=== PATIENT | male | born 1980 | race American Indian/Alaskan Native ===

== ENCOUNTER 2017-01-02 16:27 | Emergency (ER) | payer BC ==
[2017-01-02 16:34] VITALS: TEMP 97.8; BMI 45.5
--- NOTE | 2017-01-02 17:09 | ED PDOC ---
Arrival/HPI - General Chief Complaint: Lower Extremity Problem/Injury Time Seen by Provider: 01/02/17 16:52 Historian: Patient - History of Present Illness Narrative History of Present Illness (Text): 01/02/17 17:03 A 36 year old male presents to the emergency department complaining of bilateral lower extremity edema for the past several weeks to possibly months. Patient denies any relieving or exacerbating factors. He denies any difficulty ambulating. Patient denies any trauma, injury, fever, chills, nausea, vomiting, abdominal pain, chest pain, shortness of breath or any other complaints. PMD: Dr. Austin Bruce Time/Duration: Other (Several weeks to months) Symptom Course: Unchanged Quality: Other Context: Other Associated Symptoms (Text): 01/02/17 17:36 Patient complains of a several week to possibly several months history of bilateral lower extremity edema. He states that it has been getting worse as he has been on his feet frequently at work. No chest pain palpitations or dyspnea. No trauma. Past Medical History - Provider Review Nursing Documentation Reviewed: Yes - Infectious Disease Hx of Infectious Diseases: None - Musculoskeletal/Rheumatological Hx Falls: No - Psychiatric Hx Substance Use: No (denies) - Suicidal Assessment Feels Threatened In Home Enviroment: No Family/Social History - Physician Review Nursing Documentation Reviewed: Yes Family/Social History: No Known Family HX Smoking Status: Light Smoker < 10 Cigarettes Daily Hx Alcohol Use: Yes (denies) Frequency of alcohol use: Socially Hx Substance Use: No (denies) Allergies/Home Meds Allergies/Adverse Reactions: Allergies No Known Allergies Allergy (Verified 04/29/15 11:06) Home Medications: Home Meds Medication Instructions Recorded Confirmed No Known Home Med 01/02/17 01/02/17 Review of Systems - Physician Review All systems were reviewed & negative as marked: Yes - Review of Systems Constitutional: absent: Fevers, Night Sweats Respiratory: absent: SOB, Cough, Wheezing Cardiovascular: absent: Chest Pain, Palpitations, Syncope Gastrointestinal: absent: Abdominal Pain, Nausea, Vomiting Musculoskeletal: Other (Bilateral lower extremity edema) Neurological: absent: Headache, Dizziness Physical Exam Vital Signs Reviewed: Yes Vital Signs Temp Pulse Resp BP Pulse Ox 01/02/17 17:41 86 16 124/78 98 01/02/17 16:32 97.8 F 95 H 16 126/80 96 Temperature: Afebrile Blood Pressure: Normal Pulse: Regular Respiratory Rate: Normal Appearance: Positive for: Non-Toxic, Comfortable, Other (Morbidly obese male) Pain Distress: None Mental Status: Positive for: Alert and Oriented X 3 - Systems Exam Head: Present: Atraumatic, Normocephalic Pupils: Present: PERRL Extroacular Muscles: Present: EOMI Conjunctiva: Present: Normal Mouth: Present: Moist Mucous Membranes Neck: Present: Normal Range of Motion Respiratory/Chest: Present: Clear to Auscultation, Good Air Exchange. No: Respiratory Distress, Accessory Muscle Use Cardiovascular: Present: Regular Rate and Rhythm, Normal S1, S2. No: Murmurs Abdomen: Present: Normal Bowel Sounds. No: Tenderness, Distention, Peritoneal Signs, Rebound, Guarding Back: Present: Normal Inspection Upper Extremity: Present: Normal Inspection. No: Cyanosis, Edema Lower Extremity: Present: Edema (+1 bilateral LE edema), NORMAL PULSES, Normal ROM, Neurovascularly Intact. No: CALF TENDERNESS, Erythema, Deformity, Temperature Abnormalties Neurological: Present: GCS=15, CN II-XII Intact, Speech Normal. No: Motor Func Grossly Intact Skin: Present: Warm, Dry, Normal Color. No: Rashes Psychiatric: Present: Alert, Oriented x 3, Normal Insight, Normal Concentration Medical Decision Making ED Course and Treatment: 01/02/17 17:03 Impression: A 36 year old male with bilateral lower extremity edema Plan: -- Duplex lower extremity ultrasound -- Chest xray -- EKG -- Labs -- Reassess and disposition Progress Notes: 01/02/17 17:38 EKG shows normal sinus rhythm rate approximately [address] or T-wave changes 01/02/17 18:35 venous Doppler of bilateral lower extremity as read by the radiologist is negative for DVT - Lab Interpretations Lab Results: 01/02/17 18:00 01/02/17 18:00 Lab Results 01/02/17 18:00: WBC 10.1, RBC 5.07, Hgb 12.4 L, Hct 38.9 L, MCV 76.7 L, MCH 24.5 L, MCHC 31.9, RDW 16.5 H, Plt Count 276, MPV 10.9, Gran % 68.9 H, Lymph % ( Auto) 22.0, [place] % (Auto) 6.9 H, Eos % (Auto) 2.0, Baso % (Auto) 0.2, Gran # 6.97 H, Lymph # 2.2, [place] # 0.7 H, Eos # 0.2, Baso # 0.02, Sodium 139, Potassium 4.4, Chloride 105, Carbon Dioxide 27, Anion Gap 11, BUN 15, Creatinine 0.8, Est GFR ( Amer) > 60, Est GFR (Non-Af Amer) > 60, Random Glucose 97, Calcium 9.0, Total Bilirubin 0.5, AST 38, ALT 39, Alkaline Phosphatase 105, Lactate Dehydrogenase 524, Total Creatine Kinase 453 H, CK-MB ( CK-2) Pending, CK-MB (CK-2) % Pending, Troponin I 0.03, NT-Pro-B Natriuret Pep 42.1, Total Protein 8.6 H, Albumin 3.8, Globulin 4.7, Albumin/Globulin Ratio 0.8 L I have reviewed the lab results: Yes - RAD Interpretation Radiology Orders: 01/02/17 16:58 CHEST PORTABLE [RAD] Stat DUPLEX LOWER EXTRM VEIN BILAT [US] Stat chest 1 view shows no infiltrate or effusion or cardiomegaly Cardiology Physician Assistant: ED Physician - Scribe Statement The provider has reviewed the documentation as recorded by the Dinorah Golden Provider Scribe Attestation: All medical record entries made by the Scribe were at my direction and personally dictated by me. I have reviewed the chart and agree that the record accurately reflects my personal performance of the history, physical exam, medical decision making, and the department course for this patient. I have also personally directed, reviewed, and agree with the discharge instructions and disposition. Disposition/Present on Arrival - Present on Arrival Any Indicators Present on Arrival: No History of DVT/PE: No History of Uncontrolled Diabetes: No Urinary Catheter: No History of Decub. Ulcer: No History Surgical Site Infection Following: None - Disposition Have Diagnosis and Disposition been Completed?: Yes Diagnosis: Pedal edema, Morbid obesity Disposition: HOME/ ROUTINE Disposition Time: 18:38 Patient Plan: Discharge Condition: GOOD Discharge Instructions (ExitCare): Leg Edema (ED), Obesity (ED) Additional Instructions: Leg elevation. Follow-up with PMD. Follow up in ER as needed. Forms: WORK NOTE
[2017-01-02 17:42] VITALS: O2SAT 98
[2017-01-02 18:05] LABS: ADD MANUAL DIFF? NO
[2017-01-02 18:17] LABS: BASO # 0.02 K/mm3 (0.0-2.0); BASO % 0.2 % (0.0-3.0); EOS # 0.2 (0.0-0.7); GRAN # 6.97 (1.4-6.5); GRAN % 68.9 % (50.0-68.0); HEMATOCRIT 38.9 % (42.0-52.0); LYMPH # 2.2 (1.2-3.4); MEAN CELL VOLUME 76.7 fL (80.0-105.0); MEAN CORPUSCULAR HEMOGLOBIN 24.5 pg (25.0-35.0); MEAN CORPUSCULAR HGB CONC 31.9 g/dl (31.0-37.0); MEAN PLATELET VOLUME 10.9 fl (7.0-11.0); MONO # 0.7 (0.1-0.6); MONO % 6.9 % (1.0-6.0); PLATELET COUNT 276 10^3/uL (120.0-450.0); RED CELL DISTRIBUTION WIDTH 16.5 % (11.5-14.5); WHITE BLOOD COUNT 10.1 10^3/ul (4.5-11.0)
[2017-01-02 18:22] LABS: ALB/GLOB RATIO 0.8 (1.1-1.8); ALKALINE PHOSPHATASE 105 U/L (38-133); ALT/SGPT 39 U/L (7-56); AST/SGOT 38 U/L (15-59); BILIRUBIN,TOTAL 0.5 mg/dL (0.2-1.3); BLOOD UREA NITROGEN 15 mg/dL (7-21); CARBON DIOXIDE 27 mmol/L (21-33); CHLORIDE 105 mmol/L (98-107); GFR AFRICAN-AMERICAN > 60; GLUCOSE,RANDOM 97 mg/dL (70-110); POTASSIUM 4.4 mmol/L (3.6-5.0); SODIUM 139 mmol/L (132-148); TOTAL PROTEIN 8.6 g/dL (5.8-8.3)
[2017-01-02 18:34] LABS: TROPONIN I 0.03 ng/mL
--- NOTE | 2017-01-02 18:55 | US ---
HISTORY: Leg pain and swelling. Evaluate for DVT PHYSICIAN(S): Darius Larios MD. TECHNIQUE: Duplex sonography and color-flow Doppler with graded compression were used to evaluate the deep venous systems of both lower extremities. The exam is very limited by body habitus and edema. The lower femoral veins and tibial veins are not well seen. FINDINGS: The visualized deep venous systems of both lower extremities are sonographically normal and compressible. Normal wave forms and augmentation are seen. There is no sonographic evidence for deep venous thrombosis in the visualized segments of both lower extremities. IMPRESSION: No sonographic evidence for deep venous thrombosis in the visualized segments of both lower extremities. Very limited study
[2017-01-02 19:19] VITALS: BP 126/74; PULSE 95; RESP 20
--- NOTE | 2017-01-03 08:07 | RAD ---
HISTORY: edema COMPARISON: No prior. FINDINGS: LUNGS: No active pulmonary disease. PLEURA: No significant pleural effusion identified, no pneumothorax apparent. CARDIOVASCULAR: Normal. OSSEOUS STRUCTURES: No significant abnormalities. VISUALIZED UPPER ABDOMEN: Normal. OTHER FINDINGS: None. IMPRESSION: No active disease.
--- NOTE | 2017-01-03 11:22 | CARD ---
APPROVED REPORT EKG Measurement Heart [id number] <Conclusion> Normal sinus rhythm Normal ECG
== END 2017-01-02 19:19 | disposition home or self-care (01) ==
LOC: ED 16:27
DX: R60.9 Edema, unspecified (principal); E66.01 Morbid (severe) obesity due to excess calories; Z68.42 Body mass index [BMI] 45.0-49.9, adult

== ENCOUNTER 2018-05-16 14:15 | Emergency (ER) | payer BC ==
[2018-05-16 14:23] VITALS: RESP 18; TEMP 98.2; BMI 65.9
[2018-05-16 15:48] VITALS: PULSE 82; O2SAT 96
[2018-05-16 15:59] LABS: BASO # 0.02 K/mm3 (0.0-2.0); BASO % 0.1 % (0.0-3.0); EOS # 0.3 (0.0-0.7); EOS % 2.1 % (1.5-5.0); GRAN # 9.91 (1.4-6.5); GRAN % 73.4 % (50.0-68.0); HEMOGLOBIN 11.9 g/dL (14.0-18.0); LYMPH # 2.6 (1.2-3.4); LYMPH % 19.3 % (22.0-35.0); MEAN CELL VOLUME 74.6 fl (80.0-105.0); MEAN CORPUSCULAR HEMOGLOBIN 23.9 pg (25.0-35.0); MEAN CORPUSCULAR HGB CONC 32.1 g/dl (31.0-37.0); MEAN PLATELET VOLUME 10.3 fl (7.0-11.0); MONO # 0.7 (0.1-0.6); MONO % 5.1 % (1.0-6.0); RBC 4.97 10^6/uL (3.5-6.1); RED CELL DISTRIBUTION WIDTH 16.5 % (11.5-14.5); WHITE BLOOD COUNT 13.5 10^3/ul (4.5-11.0)
--- NOTE | 2018-05-16 16:01 | ED PDOC ---
Arrival/HPI - General Chief Complaint: Chest Pain Time Seen by Provider: 05/16/18 14:28 Historian: Patient - History of Present Illness Narrative History of Present Illness (Text): 05/16/18 14:30 38 year old morbidly obese male, whose past medical history includes..., who presents to the Emergency department complaining of intermittent chest pain since yesterday, worse today about 45 minutes prior to arrival after eating a hamburger and fries. Patient also notes epigastric pain since yesterday. Patient notes he had shrimp and [place] fries yesterday, after which he developed epigastric pain. Patient notes he had a hamburger and fries today, after which he developed the same symptoms. Patient said his sister had her gallbladder removed in her 30's, and thinks he may have that. Patient denies any smoking, drinking, or any known drug allergies. Patient denies any fevers, chills, back pain, neck pain, urinary symptoms, headache, dizziness, or any other complaint. Time/Duration: 24 hours (developed epigastric pain and chest pain since yesterday, worse today) Symptom Onset: Sudden Symptom Course: Unchanged Activities at Onset: Eating Past Medical History - Provider Review Nursing Documentation Reviewed: Yes - Infectious Disease Hx of Infectious Diseases: None - Musculoskeletal/Rheumatological Hx Falls: No - Psychiatric Hx Depression: No Hx Emotional Abuse: No Hx Physical Abuse: No Hx Substance Use: No (denies) - Anesthesia Hx Anesthesia: Yes Hx Anesthesia Reactions: No Hx Malignant Hyperthermia: No - Suicidal Assessment Feels Threatened In Home Enviroment: No Family/Social History - Physician Review Nursing Documentation Reviewed: Yes Family/Social History: No Known Family HX Smoking Status: Light Smoker < 10 Cigarettes Daily Hx Alcohol Use: Yes (denies) Hx Substance Use: No (denies) Allergies/Home Meds Allergies/Adverse Reactions: Allergies No Known Allergies Allergy (Verified 04/29/15 11:06) Review of Systems - Physician Review All systems were reviewed & negative as marked: Yes - Review of Systems Constitutional: Normal. absent: Fevers Eyes: Normal ENT: Normal Respiratory: Normal. absent: Cough Cardiovascular: Chest Pain. absent: Normal Gastrointestinal: Other (epigastric pain ). absent: Normal Genitourinary Male: Normal Musculoskeletal: Normal. absent: Back Pain, Neck Pain Skin: Normal Neurological: Normal. absent: Headache, Dizziness Endocrine: Normal Hemo/Lymphatic: Normal Psychiatric: Normal Physical Exam Vital Signs Reviewed: Yes Vital Signs Temp Pulse Resp BP Pulse Ox 05/16/18 15:48 82 18 126/64 96 05/16/18 14:22 98.2 F 76 18 152/60 H 95 Temperature: Afebrile Blood Pressure: Hypertensive Pulse: Regular Respiratory Rate: Normal Appearance: Positive for: Well-Appearing, Non-Toxic Pain Distress: Mild Mental Status: Positive for: Alert and Oriented X 3 - Systems Exam Head: Present: Atraumatic, Normocephalic Pupils: Present: PERRL Extroacular Muscles: Present: EOMI Conjunctiva: Present: Normal Mouth: Present: Moist Mucous Membranes Neck: Present: Normal Range of Motion Respiratory/Chest: Present: Clear to Auscultation, Good Air Exchange. No: Respiratory Distress, Accessory Muscle Use Cardiovascular: Present: Regular Rate and Rhythm, Normal S1, S2. No: Murmurs Abdomen: No: Tenderness, Distention, Peritoneal Signs Back: Present: Other (Able to reproduce some of the pain when pressing on sternal margin at left t4-5 interspace). No: Normal Inspection Upper Extremity: Present: Normal Inspection. No: Cyanosis, Edema Lower Extremity: Present: Normal Inspection. No: Edema Neurological: Present: GCS=15, CN II-XII Intact, Speech Normal Skin: Present: Warm, Dry, Normal Color. No: Rashes Psychiatric: Present: Alert, Oriented x 3, Normal Insight, Normal Concentration Medical Decision Making ED Course and Treatment: 05/16/18 16:09 Impression: 38 year old male who presents to the Emergency department for intermittent chest pain since yesterday, worse today about 45 minutes prior to arrival after eating meal. Differential Diagnosis included but are not limited to: Plan: -- EKG -- Labs -- X-Ray of chest -- Design Engineer ONCE -- US of gallbladder & pancreas -- Reassess and disposition Prior Visits: Notes and results from previous visits were reviewed. Progress Notes: EKG: Ordered, reviewed, and independently interpreted the EKG. Rate : 76 BPM Rhythm : NSR Interpretation : No ST-segment elevations or depressions, no T-wave inversions, normal intervals. Comparison : No previous EKG for comparison. 05/16/18 17:17 Chest X-ray: Creator : Cornelius Cuellar MD IMPRESSION: No active disease. No significant interval change compared to the prior examination(s). 05/16/18 17:39 Gallbladder Ultrasound: Creator : Sarah Leahy MD FINDINGS: Examination markedly limited by habitus. LIVER: Measures 20.8 cm in length.Echogenic liver may be seen in setting of hepatic parenchymal disease or fatty infiltration. No focal hepatic mass identified. The main portal vein appears patent with normal directional flow. No intrahepatic bile duct dilatation. GALLBLADDER: No gallstones. No gallbladder wall thickening or pericholecystic edema. Negative sonographic Shepard's sign as assessed by the mold filler. COMMON BILE DUCT: Measures 3 mm. PANCREAS: Not well-visualized. RIGHT KIDNEY: Measures 12.8 x 6.4 x 6.6 cm. No obstructing calculus or hydronephrosis identified. AORTA: Not well-visualized. IVC: Not well-visualized. OTHER FINDINGS: None . IMPRESSION: Markedly limited study due to habitus. Hepatomegaly. Echogenic liver may be seen in setting of hepatic parenchymal disease or fatty infiltration. - Lab Interpretations Lab Results: 05/16/18 15:40 05/16/18 15:40 Lab Results 05/16/18 15:40: Sodium 141, Potassium 4.3, Chloride 104, Carbon Dioxide 28, Anion Gap 14, BUN 11, Creatinine 0.9, Est GFR ( Amer) > 60, Est GFR (Non- Af Amer) > 60, Random Glucose 109, Calcium 8.9, Total Bilirubin 0.2, AST 20, ALT 27, Alkaline Phosphatase 112, Lactate Dehydrogenase 404, Total Creatine Kinase 251 H, CK-MB (CK-2) 0.9, CK-MB (CK-2) % Cancelled, Troponin I < 0.01 D, Total Protein 8.2, Albumin 3.9, Globulin 4.3, Albumin/Globulin Ratio 0.9 L, Lipase 53 05/16/18 15:40: D-Dimer, Quantitative < 200 05/16/18 15:40: WBC 13.5 H D, RBC 4.97, Hgb 11.9 L, Hct 37.1 L, MCV 74.6 L, MCH 23.9 L, MCHC 32.1, RDW 16.5 H, Plt Count 224, MPV 10.3, Gran % 73.4 H, Lymph % ( Auto) 19.3 L, [place] % (Auto) 5.1, Eos % (Auto) 2.1, Baso % (Auto) 0.1, Gran # 9.91 H, Lymph # (Auto) 2.6, [place] # (Auto) 0.7 H, Eos # (Auto) 0.3, Baso # (Auto ) 0.02 I have reviewed the lab results: Yes - RAD Interpretation Radiology Orders: 05/16/18 14:53 CHEST PORTABLE [RAD] Stat GALLBLADDER & PANCREAS [US] Stat Enrober: Radiologist - EKG Interpretation Interpreted by ED Physician: Yes Type: 12 lead EKG - Scribe Statement The provider has reviewed the documentation as recorded by the Scribe Michell Smitha All medical record entries made by the Scribe were at my direction and personally dictated by me. I have reviewed the chart and agree that the record accurately reflects my personal performance of the history, physical exam, medical decision making, and the department course for this patient. I have also personally directed, reviewed, and agree with the discharge instructions and disposition. Disposition/Present on Arrival - Present on Arrival Any Indicators Present on Arrival: No History of DVT/PE: No History of Uncontrolled Diabetes: No Urinary Catheter: No History of Decub. Ulcer: No History Surgical Site Infection Following: None - Disposition Have Diagnosis and Disposition been Completed?: Yes Diagnosis: Atypical chest pain, Tenderness of chest wall Disposition: HOME/ ROUTINE Disposition Time: 17:35 Patient Plan: Discharge Patient Problems: Current Active Problems Problem Status Onset Atypical chest pain Acute Tenderness of chest wall Acute Condition: GOOD Discharge Instructions (ExitCare): Costochondritis, Chest Pain (ED) Additional Instructions: Willis - All of your test results were good. Please eat a more healthy diet with less fried foods. Protonix is for your stomach. Anaprox is for pain. Follow up with your doctor. (or the clinic). Return to us if any problems. Eliazar- Dr. Dimas Mullen Prescriptions: Naproxen [Anaprox DS] 550 mg PO BID #20 tab Pantoprazole [Protonix] 40 mg PO BID #20 ect Referrals: Karely Jarrett MD [Medical Doctor] - Follow up with primary [facility] [Outside] - Follow up with primary Forms: [facility] (Malagasy), WORK NOTE, SCHOOL NOTE
[2018-05-16 16:14] LABS: ALB/GLOB RATIO 0.9 (1.1-1.8); ALBUMIN 3.9 g/dL (3.0-4.8); ALT/SGPT 27 U/L (7-56); AST/SGOT 20 U/L (17-59); BLOOD UREA NITROGEN 11 mg/dL (7-21); CALCIUM 8.9 mg/dL (8.4-10.5); GFR NON-AFRICAN AMERICAN > 60; LIPASE 53 U/L (23-300)
[2018-05-16 16:25] LABS: TROPONIN I < 0.01 ng/mL
[2018-05-16 16:34] LABS: CK-MB 0.9 ng/mL (0.0-3.6)
--- NOTE | 2018-05-16 16:55 | RAD ---
Date of service: 05/16/2018 HISTORY: Chest Pain COMPARISON: 01/02/2017 FINDINGS: LUNGS: No active pulmonary disease. PLEURA: No significant pleural effusion identified, no pneumothorax apparent. CARDIOVASCULAR: Normal. OSSEOUS STRUCTURES: No significant abnormalities. VISUALIZED UPPER ABDOMEN: Normal. OTHER FINDINGS: None. IMPRESSION: No active disease. No significant interval change compared to the prior examination(s).
--- NOTE | 2018-05-16 17:31 | US ---
Date of service: 05/16/2018 HISTORY: Epigastric Pain after [employer] [place] COMPARISON: Gallbladder ultrasound performed 08/17/11 TECHNIQUE: Sonographic evaluation of the right upper quadrant of the abdomen. FINDINGS: Examination markedly limited by habitus. LIVER: Measures 20.8 cm in length.Echogenic liver may be seen in setting of hepatic parenchymal disease or fatty infiltration. No focal hepatic mass identified. The main portal vein appears patent with normal directional flow. No intrahepatic bile duct dilatation. GALLBLADDER: No gallstones. No gallbladder wall thickening or pericholecystic edema. Negative sonographic Shepard's sign as assessed by the college athlete. COMMON BILE DUCT: Measures 3 mm. PANCREAS: Not well-visualized. RIGHT KIDNEY: Measures 12.8 x 6.4 x 6.6 cm. No obstructing calculus or hydronephrosis identified. AORTA: Not well-visualized. IVC: Not well-visualized. OTHER FINDINGS: None . IMPRESSION: Markedly limited study due to habitus. Hepatomegaly. Echogenic liver may be seen in setting of hepatic parenchymal disease or fatty infiltration.
[2018-05-16 21:36] VITALS: BP 131/68
--- NOTE | 2018-05-16 22:18 | CARD ---
APPROVED REPORT Date of service: 05/16/2018 EKG Measurement Heart [id number] <Conclusion> Normal sinus rhythm Septal infarct, age undetermined Abnormal ECG
== END 2018-05-16 17:45 | disposition home or self-care (01) ==
LOC: ED 14:15
DX: R07.89 Other chest pain (principal); E66.01 Morbid (severe) obesity due to excess calories; F17.210 Nicotine dependence, cigarettes, uncomplicated